=== PATIENT | male | born 1940 | race Asian ===

== ENCOUNTER 2017-01-08 01:07 | Inpatient (IN) | payer MEDICARE, BC ==
[~2017-01-08] VITALS: Ht 172.7 cm; Wt 73.0 kg
[~2017-01-08 01:07] MED LIST: GLYB5TAB7 PO; SITA100T PO
[2017-01-08] MEDS ORDERED: PANTOPRAZOLE SODIUM 40 MG VIAL IV ONE (01:45)
[2017-01-08] MEDS ORDERED: MORPHINE SULFATE 2 MG/1 ML DISP.SYRIN IV ONE (01:45)
[2017-01-08] MEDS ORDERED: IV NORMAL SALINE 1000 ML BAG IV ONE (01:45)
[2017-01-08] MEDS ORDERED: ONDANSETRON 4 MG/2 ML VIAL IV ONE (01:45)
[2017-01-08 01:49] LABS: BASOPHILS % (AUTO) 0.1 % (0.0-2.0); EOSINOPHILS # (AUTO) 0.1 K/uL (0.0-0.7); EOSINOPHILS % (AUTO) 0.5 % (0.0-7.0); HEMATOCRIT 46.8 % (40-50); HEMOGLOBIN 15.7 G/DL (14.0-18.0); LYMPHOCYTES # (AUTO) 1.6 K/UL (0.8-4.8); LYMPHOCYTES % (AUTO) 12.7 % (20.5-51.5); MEAN CORPUSCULAR HEMOGLOBIN 29.8 UUG (27.0-31.0); MEAN CORPUSCULAR HGB CONC 34 g/dL (32.0-37.0); MEAN CORPUSCULAR VOLUME 89.1 FL (82.0-92.0); MONOCYTES # (AUTO) 0.8 K/UL (0.1-1.30); MONOCYTES % (AUTO) 5.9 % (0.0-11.0); NEUTROPHILS # (AUTO) 10.3 K/UL (1.8-8.9); NEUTROPHILS % (AUTO) 80.8 % (38.5-71.5); PLATELET COUNT (AUTO) 206 K/UL (150-450); RED BLOOD CELL COUNT(AUTO) 5.25 MIL/UL (4.7-6.1); WHITE BLOOD COUNT (AUTO) 12.8 K/UL (4.0-11.2)
[2017-01-08 01:59] LABS: CARBON DIOXIDE 33 mmol/L (21-32); CHLORIDE 99 mmol/L (98-107); GLUCOSE 224 mg/dL (74-106); POTASSIUM 3.5 mmol/L (3.5-5.1); UREA NITROGEN, BLOOD 21 mg/dL (7-18)
[2017-01-08] MEDS ORDERED: PANTOPRAZOLE SODIUM 40 MG VIAL ONE (02:00)
[2017-01-08] MEDS ORDERED: ONDANSETRON 4 MG/2 ML VIAL ONE (02:00)
--- NOTE | 2017-01-08 02:00 | NUR ---
patient is awake, alert, oriented x4. 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 No c/o nausea/vomiting at this time. Denies chest pain/respiratory distress at this time.
[2017-01-08] MEDS ORDERED: MORPHINE SULFATE 2 MG/1 ML DISP.SYRIN ONE (02:01)
[2017-01-08 02:05] LABS: ALANINE AMINOTRANSFERASE 27 U/L (16-63); ALKALINE PHOSPHATASE 60 U/L (50-136); ASPARTATE AMINOTRANSFERASE 23 U/L (15-37); BILIRUBIN,DIRECT 0.1 mg/dL (0.0-0.2); BILIRUBIN,TOTAL 0.6 mg/dL (0.2-1.0); LIPASE 159 U/L (73-393); TOTAL PROTEIN, SERUM 7.5 g/dL (6.4-8.2)
--- NOTE | 2017-01-08 02:20 | NUR ---
Patient taken to CT. patient awake, alert, oriented x4. Able to make needs known.
[2017-01-08] MEDS ORDERED: HYDROMORPHONE 1 MG/1 ML DISP.SYRIN IV ONE (03:00)
[2017-01-08] MEDS ORDERED: HYDROMORPHONE 2 MG/1 ML DISP.SYRIN ONE (03:14)
[2017-01-08 04:00] VITALS: BP 119/65
[2017-01-08] MEDS ORDERED: INSU100V7 SQ (04:13)
[2017-01-08] MEDS ORDERED: BIMA2.5D5 EACHEYE (04:13)
[2017-01-08] MEDS ORDERED: BRIN15DR OP (04:13)
[2017-01-08] MEDS ORDERED: HYDROMORPHONE 1 MG/1 ML DISP.SYRIN IV PRN (04:30)
[2017-01-08] MEDS ORDERED: MAGNESIUM HYDROXIDE 30 ML LIQUID UDC PO PRN (04:30)
[2017-01-08] MEDS ORDERED: ACETAMINOPHEN 325 MG TABLET PO PRN (04:30)
[2017-01-08] MEDS ORDERED: IV NS 1000 ML 1,000 ML IV PRN (04:30)
[2017-01-08] MEDS ORDERED: ONDANSETRON 4 MG/2 ML VIAL IV PRN (04:30)
[2017-01-08] MEDS ORDERED: CEFTRIAXONE 1 G in IV DEXTROSE 5% 50 ML IV SCH (04:30)
[2017-01-08] MEDS ORDERED: Z GUARD REMEDY PASTE 57 GM TUBE TOP PRN (04:30)
--- NOTE | 2017-01-08 04:51 | NUR ---
Pt. admitted to Telemetry , under care of Dr. Calvillo. Dx: Abdominal Pain Belongs List completed
[2017-01-08 04:52] LABS: *BILIRUBIN,URIN NEGATIVE (NEGATIVE); *BLOOD, URINE NEGATIVE (NEGATIVE); *CLARITY,URINE CLOUDY (CLEAR); *COLOR,URINE YELLOW (YELLOW); *KETONES,URINE TRACE (NEGATIVE); *PROTEIN,URINE NEGATIVE (NEGATIVE); *UROBILINOGEN,URINE 0.2 E.U./dl (NORMAL); LEUKOCYTE ESTERASE ,URINE NEGATIVE (NEGATIVE); NITRITE, URINE NEGATIVE (NEGATIVE); PH,URINE 7.5 (5.0-8.0); UGLUCOSE TRACE (NEGATIVE)
--- NOTE | 2017-01-08 04:55 | NUR ---
Received pt from ER via wheelchair. Pt is alert, responsive, in no acute distress. Pt is admitted to tele under the care of Dr. Calvillo. Dx: Abdominal pain. Tele monitor shows sinus rhythm. VS stable. Belonging list done, admission process and care plan initiated. Pt is placed NPO. Orders entered by MD. Safety measures in place, call light within reach. Will continue to monitor.
[2017-01-08 05:00] LABS: BACTERIA,URINE NONE SEEN /HPF (NONE SEEN); RBC,URINE 0-3 /HPF (0-3); SQUAMOUS EPITHELIAL CELL,UR FEW /HPF (NONE SEEN); URINE AMORPHOUS PHOSPHATES MANY /HPF; WBC,URINE NONE SEEN /HPF (0-3)
--- NOTE | 2017-01-08 05:15 | NUR ---
Patient reported history of Diabetes, taking 15 units of Lantus at home. According to pt, blood sugar go as high as 150's and go as low as below 70's. Will endorse to day shift RN and notify MD.
[2017-01-08 05:46] LABS: BASOPHILS % (AUTO) 0.2 % (0.0-2.0); EOSINOPHILS % (AUTO) 0.1 % (0.0-7.0); HEMATOCRIT 41.2 % (40-50); LYMPHOCYTES % (AUTO) 9.4 % (20.5-51.5); MEAN CORPUSCULAR HEMOGLOBIN 29.8 UUG (27.0-31.0); MEAN CORPUSCULAR HGB CONC 34 g/dL (32.0-37.0); MEAN CORPUSCULAR VOLUME 87.5 FL (82.0-92.0); MONOCYTES # (AUTO) 0.4 K/UL (0.1-1.30); MONOCYTES % (AUTO) 3.7 % (0.0-11.0); NEUTROPHILS # (AUTO) 9.3 K/UL (1.8-8.9); NEUTROPHILS % (AUTO) 86.6 % (38.5-71.5); PLATELET COUNT (AUTO) 187 K/UL (150-450); RED BLOOD CELL COUNT(AUTO) 4.71 MIL/UL (4.7-6.1); WHITE BLOOD COUNT (AUTO) 10.7 K/UL (4.0-11.2)
[2017-01-08] MEDS ORDERED: CEFTRIAXONE 1 G VIAL ONE (05:58)
[2017-01-08] MEDS ORDERED: METRONIDAZOLE 500 MG/NS 100ML 100 ML IV ONE (05:58)
[2017-01-08] MEDS ORDERED: METRONIDAZOLE 500 MG/NS 100ML 500 MG in PREMIXED 1 EACH IV SCH (06:00)
[2017-01-08 06:04] LABS: ALANINE AMINOTRANSFERASE 28 U/L (16-63); ALKALINE PHOSPHATASE 55 U/L (50-136); ASPARTATE AMINOTRANSFERASE 26 U/L (15-37); BILIRUBIN,TOTAL 0.4 mg/dL (0.2-1.0); CARBON DIOXIDE 29 mmol/L (21-32); CHLORIDE 103 mmol/L (98-107); GLUCOSE 151 mg/dL (74-106); LIPASE 126 U/L (73-393); TOTAL PROTEIN, SERUM 6.8 g/dL (6.4-8.2); UREA NITROGEN, BLOOD 18 mg/dL (7-18)
[2017-01-08] MEDS ORDERED: BLOOD SUGAR DIAGNOSTIC 1 EACH STRIP VI SCH (07:30)
[2017-01-08] MEDS ORDERED: HYDROMORPHONE 2 MG/1 ML DISP.SYRIN IV PRN (08:15)
--- NOTE | 2017-01-08 10:47 | NUR ---
[employer] school art teacher Note: Patient was seen by Dr Samuels, patient is discharge, tolerated clear liquids, given regular diet, tolerated eating sandwich. and drinking fluids. Patient to follow up with primary doctor Dr Presley Zuniga, in [facility]. Patient ate at home, cashews and macadamian nuts, patient believed nuts caused severe abdominal pain, patient will eliminates nuts. No compalints of any nausea.
[2017-01-08 11:11] VITALS: BP 105/64
[2017-01-08] MEDS ORDERED: BRINZOLAMIDE 1% OPHT DROP 10 ML BOTTLE OP SCH (17:00)
[2017-01-09] MEDS ORDERED: BIMATOPROST 0.01% OPHT DROP 2.5 ML BOTTLE EACHEYE SCH (09:00)
== END 2017-01-08 11:30 | disposition home or self-care (01) | DRG 373 ==
LOC: ER 01:10 → TELE 04:36
PROVIDERS: ADMIT Internal Medicine; ATTEND Internal Medicine
DX: A04.9 Bacterial intestinal infection, unspecified (principal); E11.9 Type 2 diabetes mellitus without complications; K80.20 Calculus of gallbladder without cholecystitis without obstruction; I10 Essential (primary) hypertension; Z79.4 Long term (current) use of insulin; H40.9 Unspecified glaucoma; Z79.84 Long term (current) use of oral hypoglycemic drugs
CPT/HCPCS: 36415; 70030-TC; 71010; 83690; 85025; 85730; 93005; A4663; C9113; J0696; J1170; J2270; J2405; J3490; J7030; J7060

== ENCOUNTER 2017-01-09 15:39 | Inpatient (IN) | payer MEDICARE, BC ==
[~2017-01-09] VITALS: Ht 170.2 cm; Wt 68.0 kg
[~2017-01-09 15:39] MED LIST changes: +BIMA2.5D5 EACHEYE; +BRIN15DR OP; +INSU100V7 SQ; -SITA100T PO
[2017-01-09] MEDS ORDERED: ONDANSETRON 4 MG/2 ML VIAL IV ONE (16:30)
[2017-01-09] MEDS ORDERED: HYDROMORPHONE 1 MG/1 ML DISP.SYRIN IV ONE (16:30)
[2017-01-09] MEDS ORDERED: IV NORMAL SALINE 1000 ML BAG IV ONE (16:30)
--- NOTE | 2017-01-09 16:30 | NUR ---
PT IS IN ROOM #2B. DR TADEO EVALUATED THE PT.
[2017-01-09 16:57] LABS: BASOPHILS # (AUTO) 0.3 K/uL (0.0-8.0); BASOPHILS % (AUTO) 1.7 % (0.0-2.0); EOSINOPHILS % (AUTO) 0.1 % (0.0-7.0); HEMATOCRIT 43.7 % (40-50); HEMOGLOBIN 14.6 G/DL (14.0-18.0); LYMPHOCYTES % (AUTO) 6.2 % (20.5-51.5); MEAN CORPUSCULAR HEMOGLOBIN 29.5 UUG (27.0-31.0); MEAN CORPUSCULAR HGB CONC 33 g/dL (32.0-37.0); MEAN CORPUSCULAR VOLUME 88.4 FL (82.0-92.0); MONOCYTES # (AUTO) 1.3 K/UL (0.1-1.30); MONOCYTES % (AUTO) 8.4 % (0.0-11.0); NEUTROPHILS # (AUTO) 13.2 K/UL (1.8-8.9); NEUTROPHILS % (AUTO) 83.6 % (38.5-71.5); PLATELET COUNT (AUTO) 167 K/UL (150-450); RED BLOOD CELL COUNT(AUTO) 4.94 MIL/UL (4.7-6.1); WHITE BLOOD COUNT (AUTO) 15.8 K/UL (4.0-11.2)
[2017-01-09] MEDS ORDERED: ONDANSETRON 4 MG/2 ML VIAL ONE (17:08)
[2017-01-09] MEDS ORDERED: HYDROMORPHONE 2 MG/1 ML DISP.SYRIN ONE (17:08)
[2017-01-09 17:15] LABS: CARBON DIOXIDE 27 mmol/L (21-32); CHLORIDE 99 mmol/L (98-107); POTASSIUM 3.4 mmol/L (3.5-5.1)
[2017-01-09 17:16] LABS: GLUCOSE 203 mg/dL (74-106); UREA NITROGEN, BLOOD 19 mg/dL (7-18)
[2017-01-09 17:19] LABS: BAND % (MANUAL) 8 % (0-10); LYMPHOCYTES % (MANUAL) 5 % (20-40); MONOCYTES % (MANUAL) 11 % (2-10); NEUTROPHILS % (MANUAL) 76 % (42-75)
[2017-01-09 17:20] LABS: ALANINE AMINOTRANSFERASE 24 U/L (16-63); ALKALINE PHOSPHATASE 59 U/L (50-136); ASPARTATE AMINOTRANSFERASE 20 U/L (15-37); BILIRUBIN,DIRECT 0.2 mg/dL (0.0-0.2); BILIRUBIN,TOTAL 0.8 mg/dL (0.2-1.0); LIPASE 111 U/L (73-393); TOTAL PROTEIN, SERUM 7.1 g/dL (6.4-8.2)
[2017-01-09] MEDS ORDERED: CEFTRIAXONE 2 G in IV DEXTROSE 5% 100 ML IV ONE (17:45)
[2017-01-09] MEDS ORDERED: ACETAMINOPHEN 325 MG TABLET PO PRN (18:00)
[2017-01-09] MEDS ORDERED: Z GUARD REMEDY PASTE 57 GM TUBE TOP PRN (18:00)
[2017-01-09] MEDS ORDERED: ONDANSETRON 4 MG/2 ML VIAL IV PRN (18:00)
[2017-01-09] MEDS ORDERED: MAGNESIUM HYDROXIDE 30 ML LIQUID UDC PO PRN (18:00)
[2017-01-09] MEDS ORDERED: POTASSIUM CHLORIDE 50 ML IV SCH (18:00)
[2017-01-09] MEDS ORDERED: HYDROMORPHONE 1 MG/1 ML DISP.SYRIN IV PRN (18:00)
[2017-01-09] MEDS ORDERED: CEFTRIAXONE 1 G VIAL ONE (18:11)
--- NOTE | 2017-01-09 18:29 | NUR ---
PT WAS TRANSFERED TO TELEMETRY ROOM #220. REPORT WAS GIVEN TO RUBBER COMPOUNDER.
--- NOTE | 2017-01-09 18:45 | NUR ---
RECEIVED CLIENT FROM THE ER VIA [employer] AT 1830. CLIENT IS A TELE PATIENT. V/S STABLE. IS ALERT, AWAKE AND ORIENTED TIMES 4. ADMIT WITH A DIAGNOSIS OF PNEUMONIA. HAS A 20 GAUGE PERIPHERAL IV LINE ON THE RIGHT HAND. COMMUNICATED IF SOMEONE IS ABLE TO BRING HIM TWO EYE DROP MEDICATIONS FROM HOME REQUESTED BY PHARMACIST, CLIENT STATED YES. NPO AT THE TIME
[2017-01-09 20:00] VITALS: BP 130/71
[2017-01-09] MEDS ORDERED: POTASSIUM CHLORIDE 20 MEQ TAB.PRT.SR PO ONE (20:00)
[2017-01-09] MEDS: LEVOFLOXACIN 750MG/D5W 750 MG in PREMIXED 1 EACH IV SCH (20:44)
[2017-01-09 21:00] VITALS: BP 130/71
[2017-01-09] MEDS ORDERED: INSULIN GLARGINE,HUM 300 UNITS/3 ML CARTRIDGE SQ SCH (21:00)
[2017-01-09] MEDS: INSULIN DETEMIR 300 UNIT/3 ML CARTRIDGE SQ SCH (21:05)
[2017-01-10] VITALS: BP 127/75
[2017-01-10 04:00] VITALS: BP 111/68
[2017-01-10 05:00] VITALS: BP 111/68
[2017-01-10] MEDS: IV NS 1000 ML 1,000 ML IV PRN (05:45)
--- NOTE | 2017-01-10 06:33 | NUR ---
END OF SHIFT SUMMERY: pt is A&O X 4. On room air, sating well. VSS. connected to the food service associate,NSR. complained of mild abdominal pain, tylenol was given with relief. still on NS 0.9% @ 75 ml/hr. kept NPO for possible HIDA scan today. POC: Possible HIDA scan. No acute respiratory/cardiac distress noted. will continue to monitor and endorse patient to next shift nurse.
[2017-01-10 06:52] LABS: ALANINE AMINOTRANSFERASE 28 U/L (16-63); ALKALINE PHOSPHATASE 61 U/L (50-136); ASPARTATE AMINOTRANSFERASE 52 U/L (15-37); BILIRUBIN,TOTAL 0.6 mg/dL (0.2-1.0); CARBON DIOXIDE 23 mmol/L (21-32); CHLORIDE 101 mmol/L (98-107); CREATININE 0.9 mg/dL (0.6-1.3); GLUCOSE 112 mg/dL (74-106); MAGNESIUM 1.8 mg/dL (1.8-2.4); PHOSPHOROUS 2.1 mg/dL (2.5-4.9); POTASSIUM 2.9 mmol/L (3.5-5.1); TOTAL PROTEIN, SERUM 6.6 g/dL (6.4-8.2); UREA NITROGEN, BLOOD 13 mg/dL (7-18)
[2017-01-10 06:56] LABS: BASOPHILS % (AUTO) 0.1 % (0.0-2.0); HEMOGLOBIN 14.1 g/dL (12.5-16.3); LYMPHOCYTES # (AUTO) 0.5 K/uL (20.0-40.0); MONOCYTES # (AUTO) 1.1 K/uL (2.0-10.0)
[2017-01-10 07:07] LABS: LYMPHOCYTES % (AUTO) 4.4 % (20.5-51.5); MEAN CORPUSCULAR HEMOGLOBIN 30.4 uug (23.8-33.4); MEAN CORPUSCULAR HGB CONC 34 g/dL (32.5-36.3); MEAN CORPUSCULAR VOLUME 88.5 fL (73.0-96.2); MONOCYTES % (AUTO) 9.3 % (0.0-11.0); NEUTROPHILS % (AUTO) 86.2 % (38.5-71.5); RED BLOOD CELL COUNT(AUTO) 4.63 MIL/uL (4.06-5.63)
[2017-01-10 07:11] LABS: PLATELET COUNT (AUTO) 114 K/uL (152-348); WHITE BLOOD COUNT (AUTO) 11.6 K/uL (3.6-10.2)
--- NOTE | 2017-01-10 07:30 | NUR ---
AWAKE ALERT AND ORIENTED X3 C/O SLIGHT ABDOMINAL PAIN MORE ON THE RIGHT SIDE. KEPT NPO. AFEBILE
[2017-01-10] MEDS: glyBURIDE 5 MG TABLET PO SCH ×2 (08:06→17:17)
[2017-01-10] MEDS: PANTOPRAZOLE SODIUM 40 MG VIAL IV SCH (08:10)
[2017-01-10] MEDS: HYDROMORPHONE 4 MG/1 ML DISP.SYRIN IV PRN ×2 (09:05→13:40)
--- NOTE | 2017-01-10 09:10 | NUR ---
Client was made aware of a planned NM Hida GB Vasc Flow for later today.
--- NOTE | 2017-01-10 09:27 | NUR ---
Consent obtain by the client for NM NEVILLE GB Vas Flow.
--- NOTE | 2017-01-10 10:37 | NUR ---
SEEN BY ELECTRONIC PAGINATION SYSTEM OPERATOR HOSPITALIST NOTED LABS WITH ORDERS, AWAITING SURGICAL CONSULT, CONTINUE NPO STATUS
[2017-01-10 11:16] VITALS: BP 102/61
[2017-01-10] MEDS: POTASSIUM PHOSPHATE MM 5 MMOL in IV DEXTROSE 5% 100 ML IV SCH ×4 (13:40→22:55)
--- NOTE | 2017-01-10 13:45 | NUR ---
Potassium Phosphate hung late, client was in procedure for NM HIDA GB Vascular Flow
[2017-01-10] MEDS ORDERED: HYDROMORPHONE 1 MG/1 ML DISP.SYRIN IM PRN (15:00)
[2017-01-10 15:50] VITALS: BP 110/63
[2017-01-10] MEDS ORDERED: HYDROMORPHONE 4 MG/1 ML DISP.SYRIN IM PRN (16:15)
--- NOTE | 2017-01-10 16:20 | NUR ---
Second bag of Potassium Phosphate hung late due to previous procedure. Pharmacy aware.
[2017-01-10] MEDS: HYDROMORPHONE 4 MG/1 ML DISP.SYRIN IM PRN ×3 (18:03→22:25)
[2017-01-10] MEDS: LEVOFLOXACIN 750MG/D5W 750 MG in PREMIXED 1 EACH IV SCH (18:19)
--- NOTE | 2017-01-10 18:58 | NUR ---
Client in bed asleep. Client has been experiencing pain on the right abdominal side and radiating anterior and across abdomen. Dilaudid 1mg has been as given as requested, PRN, by the client. Client family brought in medications from home as well as two eye drops Bimatoprost and Brinzolamide, pharmacy aware.
--- NOTE | 2017-01-10 19:33 | NUR ---
BIMATOPROST EYE DROPS AND BRINZOLAMIDE EYE DROPS NOT GIVEN AT DESIGNATED TIMES BECAUSE MEDICATIONS WAS NOT AVAILABLE AT THE TIME. MEDICATIONS WERE TAKEN DOWN AND TURNED IN TO PHARMACY AROUND 1730 HRS.
[2017-01-10 20:13] VITALS: BP 145/73
[2017-01-10] MEDS: INSULIN DETEMIR 300 UNIT/3 ML CARTRIDGE SQ SCH (21:00)
--- NOTE | 2017-01-10 21:55 | NUR ---
Patient signed consent form for surgery tomorrow morning at 1100. Consent for laparoscopic cholecystectomy. Signed consent place in patient's chart.
[2017-01-10] MEDS ORDERED: HYDROMORPHONE 1 MG/1 ML DISP.SYRIN ONE (22:38)
[2017-01-11] VITALS (7 sets, daily range): BP systolic 96–131; BP diastolic 65–80
--- NOTE | 2017-01-11 | NUR ---
Patient placed on NPO status for surgery. Will continue to monitor.
[2017-01-11] MEDS ORDERED: HYDROMORPHONE 4 MG/1 ML DISP.SYRIN ONE (00:20)
--- NOTE | 2017-01-11 00:48 | NUR ---
2 bags 4 bags of 4 Potassium Phosphate Addendum: 01/11/17 at 0050 by JOSE ALFREDO FELDMAN RN DISREGARD NOTES ABOVE. ERROR.
--- NOTE | 2017-01-11 00:50 | NUR ---
2 bags of Potassium Phosphate (3rd and 4th bag) administered, completed dose. Patient tolerated well.
[2017-01-11] MEDS: HYDROMORPHONE 4 MG/1 ML DISP.SYRIN IM PRN ×4 (03:13→16:33)
--- NOTE | 2017-01-11 06:00 | NUR ---
Pt slept intermittently, in no acute distress. Pain management as ordered for pain on right abdomen. IVF infusing, no infiltration noted. Patient is on tele, sinus rhythm with PVCs, bigeminy/trigeminy. Patient no c/o of SOB, chest pain, headache, nausea/vomiting. NPO status post midnight, consent signed, preop checklist done for surgery scheduled at 1100 today. Blood sugar checked per nursing assessment and due to pt's hx of diabetes and NPO status. BS level reading 180. Assisted patient with sponge bath, dressed with clean gown. Safety measures in place, will continue to monitor.
[2017-01-11] MEDS ORDERED: HYDROMORPHONE 2 MG/1 ML DISP.SYRIN ONE (06:03)
[2017-01-11 06:45] LABS: BASOPHILS % (AUTO) 0.1 % (0.0-2.0); EOSINOPHILS % (AUTO) 0.1 % (0.0-7.0); HEMATOCRIT 37.1 % (36.7-47.1); HEMOGLOBIN 12.7 g/dL (12.5-16.3); LYMPHOCYTES # (AUTO) 0.6 K/uL (20.0-40.0); LYMPHOCYTES % (AUTO) 6.4 % (20.5-51.5); MEAN CORPUSCULAR HEMOGLOBIN 30.6 uug (23.8-33.4); MEAN CORPUSCULAR HGB CONC 34 g/dL (32.5-36.3); MEAN CORPUSCULAR VOLUME 89.3 fL (73.0-96.2); MONOCYTES # (AUTO) 0.9 K/uL (2.0-10.0); MONOCYTES % (AUTO) 9.5 % (0.0-11.0); NEUTROPHILS % (AUTO) 83.9 % (38.5-71.5); PLATELET COUNT (AUTO) 86 K/uL (152-348); RED BLOOD CELL COUNT(AUTO) 4.15 MIL/uL (4.06-5.63); WHITE BLOOD COUNT (AUTO) 9.6 K/uL (3.6-10.2)
[2017-01-11 07:46] LABS: ALANINE AMINOTRANSFERASE 33 U/L (16-63); ALKALINE PHOSPHATASE 66 U/L (50-136); ASPARTATE AMINOTRANSFERASE 35 U/L (15-37); BILIRUBIN,DIRECT 0.2 mg/dL (0.0-0.2); BILIRUBIN,TOTAL 0.6 mg/dL (0.2-1.0); CARBON DIOXIDE 25 mmol/L (21-32); CHLORIDE 99 mmol/L (98-107); CREATININE 1.2 mg/dL (0.6-1.3); GLUCOSE 191 mg/dL (74-106); POTASSIUM 3.4 mmol/L (3.5-5.1); TOTAL PROTEIN, SERUM 6.2 g/dL (6.4-8.2); UREA NITROGEN, BLOOD 29 mg/dL (7-18)
--- NOTE | 2017-01-11 08:28 | NUR ---
Notified of Platelet count: 01/09 platelets 167, 01/10 plt was 114, 01/11 plt decreased to 86, surgeon Dr More was notified, left no orders. Patient to have Lap Cholecystectomy
[2017-01-11] MEDS: glyBURIDE 5 MG TABLET PO SCH ×2 (08:34→18:29)
[2017-01-11] MEDS: PANTOPRAZOLE SODIUM 40 MG VIAL IV SCH (08:46)
[2017-01-11] MEDS ORDERED: BUPIVACAINE 0.25% 30 ML VIAL ONE (09:56)
--- NOTE | 2017-01-11 10:10 | NUR ---
Chris OSUNA was notified of the platelet down to 86, was 167 two days ago, and 114, yesterday.
[2017-01-11] MEDS ORDERED: FENTANYL CITRATE 250 MCG/5 ML AMPUL ONE (11:17)
[2017-01-11] MEDS ORDERED: MIDAZOLAM HCL 2 MG/2 ML VIAL ONE (11:17)
[2017-01-11] MEDS ORDERED: ROCURONIUM BROMIDE 50 MG/5 ML VIAL ONE (11:18)
[2017-01-11] MEDS ORDERED: SUCCINYLCHOLINE CHLORIDE 200 MG/10 ML VIAL ONE (11:18)
[2017-01-11 13:15] LABS: BASOPHILS % (AUTO) 0.1 % (0.0-2.0); EOSINOPHILS % (AUTO) 0.2 % (0.0-7.0); HEMATOCRIT 37.2 % (40-50); HEMOGLOBIN 12.4 G/DL (14.0-18.0); LYMPHOCYTES # (AUTO) 0.4 K/UL (0.8-4.8); LYMPHOCYTES % (AUTO) 5.7 % (20.5-51.5); MEAN CORPUSCULAR HEMOGLOBIN 29.4 UUG (27.0-31.0); MEAN CORPUSCULAR HGB CONC 33 g/dL (32.0-37.0); MONOCYTES # (AUTO) 0.6 K/UL (0.1-1.30); MONOCYTES % (AUTO) 8.7 % (0.0-11.0); NEUTROPHILS # (AUTO) 6.5 K/UL (1.8-8.9); NEUTROPHILS % (AUTO) 85.3 % (38.5-71.5); PLATELET COUNT (AUTO) 104 K/UL (150-450); RED BLOOD CELL COUNT(AUTO) 4.22 MIL/UL (4.7-6.1); WHITE BLOOD COUNT (AUTO) 7.5 K/UL (4.0-11.2)
--- NOTE | 2017-01-11 13:30 | NUR ---
Received patient from PACU, vital signs retaken, BP 121/70, pulse ox on 2 liters oxygen 93%, heart rate 88. pain level 4/10. no request for pain medications at present time. Dentures is on, due to void. 3 puncture sites with bandage and baylee villalobos right abdomen. started on clear liquids, no complaints of any nausea.
[2017-01-11 14:00] LABS: BAND % (MANUAL) 9 % (0-10); LYMPHOCYTES % (MANUAL) 7 % (20-40); METAMYELOCYTES % 1 % (0-1); MONOCYTES % (MANUAL) 8 % (2-10); NEUTROPHILS % (MANUAL) 75 % (42-75)
[2017-01-11] MEDS: IV NS 1000 ML 1,000 ML IV PRN (15:18)
[2017-01-11] MEDS: POTASSIUM CHLORIDE 10 MEQ in IV DEXTROSE 5% 100 ML IV SCH ×2 (15:22→16:21)
[2017-01-11] MEDS ORDERED: PROPOFOL 200 MG/20 ML BOTTLE IV ONE (17:34)
[2017-01-11] MEDS ORDERED: IV NORMAL SALINE 1000 ML BAG IV ONE (17:34)
[2017-01-11] MEDS ORDERED: ONDANSETRON 4 MG/2 ML VIAL IV ONE (17:34)
[2017-01-11] MEDS ORDERED: SEVOFLURANE 250 ML BOTTLE IH ONE (17:34)
[2017-01-11] MEDS ORDERED: LIDOCAINE-MPF 2% 5 ML VIAL MC ONE (17:34)
[2017-01-11] MEDS ORDERED: NEOSTIGMINE METHYLSULFATE 10 MG/10 ML VIAL IV ONE (17:34)
[2017-01-11] MEDS ORDERED: CEFAZOLIN 1 G VIAL MC ONE (17:34)
[2017-01-11] MEDS ORDERED: GLYCOPYRROLATE 0.2 MG/ML VIAL MC ONE (17:34)
[2017-01-11] MEDS: LEVOFLOXACIN 750MG/D5W 750 MG in PREMIXED 1 EACH IV SCH (18:53)
[2017-01-11] MEDS: INSULIN DETEMIR 300 UNIT/3 ML CARTRIDGE SQ SCH (20:43)
[2017-01-12] MEDS: HYDROMORPHONE 4 MG/1 ML DISP.SYRIN IM PRN ×2 (00:26→10:27)
--- NOTE | 2017-01-12 06:00 | NUR ---
Patient slept well, in no acute distress. Pt is s/p laparoscopic cholecystectomy. Three incision site dressings intact, no drainage/swelling/redness. AZAM drain intact/draining serous liquid. Pain management as ordered. Instructions given to patient to use incentive spirometer at bedside. IVF running, no infiltration noted. Patient ambulates to the bathroom, voiding. VS stable, pt remains afebrile. Safety measures in place. Will continue to monitor.
[2017-01-12 06:16] VITALS: BP 107/69
[2017-01-12 07:04] LABS: BASOPHILS % (AUTO) 0.1 % (0.0-2.0); EOSINOPHILS % (AUTO) 0.1 % (0.0-7.0); HEMOGLOBIN 12.9 g/dL (12.5-16.3); LYMPHOCYTES # (AUTO) 0.8 K/uL (20.0-40.0); LYMPHOCYTES % (AUTO) 8.5 % (20.5-51.5); MEAN CORPUSCULAR HGB CONC 35 g/dL (32.5-36.3); MEAN CORPUSCULAR VOLUME 88.8 fL (73.0-96.2); MONOCYTES # (AUTO) 0.8 K/uL (2.0-10.0); MONOCYTES % (AUTO) 9.4 % (0.0-11.0); NEUTROPHILS # (AUTO) 7.2 K/uL (1.8-8.9); NEUTROPHILS % (AUTO) 81.9 % (38.5-71.5); PLATELET COUNT (AUTO) 99 K/uL (152-348); RED BLOOD CELL COUNT(AUTO) 4.17 MIL/uL (4.06-5.63); WHITE BLOOD COUNT (AUTO) 8.8 K/uL (3.6-10.2)
[2017-01-12] MEDS: IV NS 1000 ML 1,000 ML IV PRN (07:07)
[2017-01-12 07:11] LABS: CARBON DIOXIDE 27 mmol/L (21-32); CHLORIDE 99 mmol/L (98-107); GLUCOSE 74 mg/dL (74-106); MAGNESIUM 2.2 mg/dL (1.8-2.4); POTASSIUM 3.2 mmol/L (3.5-5.1); UREA NITROGEN, BLOOD 20 mg/dL (7-18)
--- NOTE | 2017-01-12 08:00 | NUR ---
AWAKE ALERT COOPERATE WELL NO N/V OR PAIN ABD INCISION CLEAN AND AZAM INPLACE SMALL AMT OF PK DRAINAGE RESTING WELL WITH CALL OSCAR IN REACH
[2017-01-12] MEDS: PANTOPRAZOLE SODIUM 40 MG VIAL IV SCH (08:45)
[2017-01-12] MEDS: glyBURIDE 5 MG TABLET PO SCH ×2 (08:45→17:00)
[2017-01-12 09:26] LABS: BAND % (MANUAL) 12 % (0-10); LYMPHOCYTES % (MANUAL) 12 % (20-40); METAMYELOCYTES % 1 % (0-1); MONOCYTES % (MANUAL) 9 % (2-10); NEUTROPHILS % (MANUAL) 66 % (42-75)
--- NOTE | 2017-01-12 10:00 | NUR ---
DR HOLMAN SEEN PATIENT AND LAB RESULT THIS AM AND D/C AZAM ONLY 10ML OUT AND SMALL DSG COVER STATE OK TO D/C HOME IF OK WITH PMD
[2017-01-12 10:38] LABS: ALANINE AMINOTRANSFERASE 36 U/L (16-63); ALKALINE PHOSPHATASE 75 U/L (50-136); ASPARTATE AMINOTRANSFERASE 54 U/L (15-37); BILIRUBIN,TOTAL 0.8 mg/dL (0.2-1.0); CARBON DIOXIDE 25 mmol/L (21-32); CHLORIDE 100 mmol/L (98-107); CREATININE 1.1 mg/dL (0.6-1.3); GLUCOSE 73 mg/dL (74-106); POTASSIUM 3.3 mmol/L (3.5-5.1); TOTAL PROTEIN, SERUM 6.3 g/dL (6.4-8.2); UREA NITROGEN, BLOOD 20 mg/dL (7-18)
[2017-01-12 11:58] VITALS: BP 123/80
--- NOTE | 2017-01-12 12:00 | NUR ---
ASSIST OOB UP IN CHAIR EAT LUNCH CLEAR LIQ WELL NO N/V AND DIET WILL ADV MARYCARMEN
--- NOTE | 2017-01-12 14:00 | NUR ---
D/C INSTRUCTION REGARDING F/U WITH OWN PMD /SURGEON AND CONTINUE HOME MED ORDER EDUCATION PK GIVE ,VERBALIZES UNDERSTAND
[2017-01-12] MEDS ORDERED: POTASSIUM CHLORIDE 20 MEQ TAB.PRT.SR PO ONE (15:00)
[2017-01-12 15:55] VITALS: BP 126/74
--- NOTE | 2017-01-12 16:30 | NUR ---
REFUSED PHAMACY TO EXPLAINED PRECRIPTION STATE HE KNOW ANTIBIOTIC AND PAIN MEDICATION AND DR CERDA GIVEN TO HIM AND REFUSED VACCINE WILL F/U WITH OWN PMD
--- NOTE | 2017-01-12 17:15 | NUR ---
D/C HOME WITH HIS BELONGING CONDITION STABLE EAT DINNER SMALL AMT STATE WILL EAT AT HOME
[2017-01-13] MEDS ORDERED: PANTOPRAZOLE SODIUM 40 MG TABLET.DR PO SCH (07:00)
== END 2017-01-12 17:35 | disposition home or self-care (01) | DRG 853 ==
LOC: ER 15:39 → TELE 18:06 → MED 01-11 09:00
PROVIDERS: ADMIT Internal Medicine; ATTEND Internal Medicine
PROC: 0FT44ZZ Resection of Gallbladder, Percutaneous Endoscopic Approach (ICD-10-PCS; principal; 2017-01-11 11:00)
DX: A41.9 Sepsis, unspecified organism (principal); N17.0 Acute kidney failure with tubular necrosis; J18.9 Pneumonia, unspecified organism; K80.00 Calculus of gallbladder with acute cholecystitis without obstruction; E87.1 Hypo-osmolality and hyponatremia; E11.9 Type 2 diabetes mellitus without complications; E83.39 Other disorders of phosphorus metabolism; E87.6 Hypokalemia; I11.9 Hypertensive heart disease without heart failure; Z79.84 Long term (current) use of oral hypoglycemic drugs; K59.00 Constipation, unspecified; N20.0 Calculus of kidney; H40.9 Unspecified glaucoma
CPT/HCPCS: 36415; 70030-TC; 71010; 78445; 83605; 83690; 83735; 84100; 85025; 85730; 86850; 86900; 86901; 87040; 87070; 87075; 93005; A4663; A9537; C9113; J0330; J0690; J0696; J1170; J1815; J1956; J2250; J2405; J2710; J3010; J3480; J3490; J7030; J7050; J7060

== ENCOUNTER 2017-02-27 09:43 | Inpatient (IN) | payer MEDICARE, BC ==
[~2017-02-27] VITALS: Ht 170.2 cm; Wt 69.9 kg
[2017-02-27] MEDS ORDERED: METFORMIN HCL ER 500 MG TABLET PO (10:09)
[2017-02-27 10:45] LABS: BASOPHILS % (AUTO) 0.1 % (0.0-2.0); EOSINOPHILS % (AUTO) 0.1 % (0.0-7.0); HEMOGLOBIN 14.7 g/dL (12.5-16.3); LYMPHOCYTES # (AUTO) 0.6 K/uL (20.0-40.0); MEAN CORPUSCULAR HEMOGLOBIN 30.5 uug (23.8-33.4); MEAN CORPUSCULAR HGB CONC 34 g/dL (32.5-36.3); MEAN CORPUSCULAR VOLUME 89.5 fL (73.0-96.2); MONOCYTES # (AUTO) 0.9 K/uL (2.0-10.0); MONOCYTES % (AUTO) 7.8 % (0.0-11.0); NEUTROPHILS # (AUTO) 10.4 K/uL (1.8-8.9); PLATELET COUNT (AUTO) 229 K/uL (152-348)
[2017-02-27] MEDS ORDERED: ONDANSETRON 4 MG/2 ML VIAL IV ONE (10:45)
[2017-02-27] MEDS ORDERED: IV NORMAL SALINE 1000 ML BAG IV ONE (10:45)
[2017-02-27] MEDS ORDERED: MORPHINE SULFATE 2 MG/1 ML DISP.SYRIN IV ONE (10:45)
[2017-02-27 11:05] LABS: CARBON DIOXIDE 27 mmol/L (21-32); CHLORIDE 98 mmol/L (98-107); CREATININE 0.8 mg/dL (0.6-1.3); GLUCOSE 134 mg/dL (74-106); POTASSIUM 4.5 mmol/L (3.5-5.1); UREA NITROGEN, BLOOD 16 mg/dL (7-18)
[2017-02-27 11:10] LABS: ALANINE AMINOTRANSFERASE 610 U/L (16-63); ALKALINE PHOSPHATASE 965 U/L (50-136); ASPARTATE AMINOTRANSFERASE 537 U/L (15-37); BILIRUBIN,DIRECT 3.3 mg/dL (0.0-0.2); BILIRUBIN,TOTAL 4.7 mg/dL (0.2-1.0); TOTAL PROTEIN, SERUM 7.9 g/dL (6.4-8.2)
[2017-02-27] MEDS ORDERED: ONDANSETRON 4 MG/2 ML VIAL ONE (11:10)
[2017-02-27] MEDS ORDERED: MORPHINE SULFATE 4 MG/1 ML DISP.SYRIN ONE (11:10)
[2017-02-27 11:18] LABS: LIPASE 3568 U/L (73-393)
[2017-02-27] MEDS ORDERED: HYDROMORPHONE 1 MG/1 ML DISP.SYRIN IV ONE (11:45)
[2017-02-27] MEDS ORDERED: HYDROMORPHONE 1 MG/1 ML DISP.SYRIN ONE (12:06)
[2017-02-27 14:26] VITALS: BP 110/66
[2017-02-27] MEDS ORDERED: ACETAMINOPHEN 650 MG SUPP.RECT RC PRN (15:45)
[2017-02-27] MEDS ORDERED: MORPHINE SULFATE 2 MG/1 ML DISP.SYRIN IV PRN (15:45)
[2017-02-27] MEDS ORDERED: ONDANSETRON 4 MG/2 ML VIAL IV PRN (15:45)
[2017-02-27] MEDS: MORPHINE SULFATE 4 MG/1 ML DISP.SYRIN IV PRN (15:58)
[2017-02-27 16:00] VITALS: BP 121/79
[2017-02-27] MEDS ORDERED: BRINZOLAMIDE 1% OPHT DROP 10 ML BOTTLE OP SCH (17:00)
[2017-02-27] MEDS: IV D5/ 0.9% NACL 1,000 ML IV PRN (17:14)
[2017-02-27] MEDS: PIPERACILLIN/TAZOBACTAM/D5W 3.375 G in PREMIXED 1 EACH IV SCH ×2 (17:17→21:22)
[2017-02-27 20:01] VITALS: BP 108/58
[2017-02-27] MEDS: LATANOPROST OPHT DROP 2.5 ML BOTTLE OP SCH (21:00)
[2017-02-27] MEDS: FAMOTIDINE. 20 MG/2 ML VIAL IV SCH (21:21)
[2017-02-28 04:00] VITALS: BP 114/69
[2017-02-28] MEDS: MORPHINE SULFATE 4 MG/1 ML DISP.SYRIN IV PRN ×3 (05:43→14:46)
[2017-02-28] MEDS: PIPERACILLIN/TAZOBACTAM/D5W 3.375 G in PREMIXED 1 EACH IV SCH ×3 (06:05→22:18)
[2017-02-28 07:28] LABS: BASOPHILS % (AUTO) 0.3 % (0.0-2.0); EOSINOPHILS # (AUTO) 0.1 K/uL (0.0-0.7); EOSINOPHILS % (AUTO) 0.8 % (0.0-7.0); HEMATOCRIT 37.4 % (36.7-47.1); LYMPHOCYTES % (AUTO) 13.2 % (20.5-51.5); MEAN CORPUSCULAR HEMOGLOBIN 31.1 uug (23.8-33.4); MEAN CORPUSCULAR HGB CONC 35 g/dL (32.5-36.3); MEAN CORPUSCULAR VOLUME 89.3 fL (73.0-96.2); MONOCYTES # (AUTO) 0.5 K/uL (2.0-10.0); MONOCYTES % (AUTO) 7.2 % (0.0-11.0); NEUTROPHILS # (AUTO) 5.9 K/uL (1.8-8.9); NEUTROPHILS % (AUTO) 78.5 % (38.5-71.5); PLATELET COUNT (AUTO) 228 K/uL (152-348); RED BLOOD CELL COUNT(AUTO) 4.19 MIL/uL (4.06-5.63); WHITE BLOOD COUNT (AUTO) 7.5 K/uL (3.6-10.2)
[2017-02-28 07:49] LABS: ALANINE AMINOTRANSFERASE 368 U/L (16-63); ALKALINE PHOSPHATASE 818 U/L (50-136); ASPARTATE AMINOTRANSFERASE 164 U/L (15-37); BILIRUBIN,TOTAL 9.5 mg/dL (0.2-1.0); CARBON DIOXIDE 30 mmol/L (21-32); CHLORIDE 100 mmol/L (98-107); CREATININE 0.9 mg/dL (0.6-1.3); GLUCOSE 138 mg/dL (74-106); LIPASE 139 U/L (73-393); PHOSPHOROUS 3.1 mg/dL (2.5-4.9); POTASSIUM 3.4 mmol/L (3.5-5.1); TOTAL PROTEIN, SERUM 6.4 g/dL (6.4-8.2); UREA NITROGEN, BLOOD 14 mg/dL (7-18)
[2017-02-28] MEDS ORDERED: BIMATOPROST 0.01% OPHT DROP 2.5 ML BOTTLE EACHEYE SCH (09:00)
[2017-02-28] MEDS: FAMOTIDINE. 20 MG/2 ML VIAL IV SCH ×2 (10:10→22:03)
[2017-02-28] MEDS: DORZOLAMIDE 2% OPHT DROP 10 ML BOTTLE OP SCH ×2 (10:53→16:21)
[2017-02-28 11:30] VITALS: BP 117/70
[2017-02-28 15:10] VITALS: BP 154/78
[2017-02-28] MEDS: POTASSIUM CHLORIDE 50 ML IV SCH ×2 (17:56→19:00)
[2017-02-28 20:23] VITALS: BP 129/70
[2017-02-28] MEDS: LATANOPROST OPHT DROP 2.5 ML BOTTLE OP SCH (22:05)
[2017-03-01] MEDS: IV D5/ 0.9% NACL 1,000 ML IV PRN ×2 (00:21→11:31)
[2017-03-01 04:44] VITALS: BP 129/78
[2017-03-01] MEDS: PIPERACILLIN/TAZOBACTAM/D5W 3.375 G in PREMIXED 1 EACH IV SCH ×2 (05:55→13:29)
[2017-03-01 06:46] LABS: BASOPHILS % (AUTO) 0.3 % (0.0-2.0); EOSINOPHILS # (AUTO) 0.1 K/uL (0.0-0.7); EOSINOPHILS % (AUTO) 0.7 % (0.0-7.0); HEMATOCRIT 36.3 % (36.7-47.1); HEMOGLOBIN 12.5 g/dL (12.5-16.3); LYMPHOCYTES % (AUTO) 14.6 % (20.5-51.5); MEAN CORPUSCULAR HEMOGLOBIN 30.9 uug (23.8-33.4); MEAN CORPUSCULAR HGB CONC 35 g/dL (32.5-36.3); MEAN CORPUSCULAR VOLUME 89.2 fL (73.0-96.2); MONOCYTES # (AUTO) 0.6 K/uL (2.0-10.0); MONOCYTES % (AUTO) 8.6 % (0.0-11.0); NEUTROPHILS # (AUTO) 5.3 K/uL (1.8-8.9); NEUTROPHILS % (AUTO) 75.8 % (38.5-71.5); PLATELET COUNT (AUTO) 245 K/uL (152-348); RED BLOOD CELL COUNT(AUTO) 4.06 MIL/uL (4.06-5.63); WHITE BLOOD COUNT (AUTO) 6.9 K/uL (3.6-10.2)
[2017-03-01 07:06] LABS: ALANINE AMINOTRANSFERASE 246 U/L (16-63); ALKALINE PHOSPHATASE 705 U/L (50-136); ASPARTATE AMINOTRANSFERASE 62 U/L (15-37); BILIRUBIN,TOTAL 8.1 mg/dL (0.2-1.0); CARBON DIOXIDE 27 mmol/L (21-32); CHLORIDE 100 mmol/L (98-107); CREATININE 0.9 mg/dL (0.6-1.3); GLUCOSE 173 mg/dL (74-106); MAGNESIUM 2.1 mg/dL (1.8-2.4); PHOSPHOROUS 2.2 mg/dL (2.5-4.9); POTASSIUM 3.4 mmol/L (3.5-5.1); TOTAL PROTEIN, SERUM 6.2 g/dL (6.4-8.2); UREA NITROGEN, BLOOD 9 mg/dL (7-18)
[2017-03-01] MEDS: FAMOTIDINE. 20 MG/2 ML VIAL IV SCH (09:57)
[2017-03-01] MEDS: DORZOLAMIDE 2% OPHT DROP 10 ML BOTTLE OP SCH ×2 (09:58→17:00)
[2017-03-01 11:07] VITALS: BP 140/77
[2017-03-01 14:58] VITALS: BP 128/72
[2017-03-01] MEDS ORDERED: POTASSIUM PHOSPHATE MM 7.5 MMOL in IV DEXTROSE 5% 100 ML IV SCH (15:00)
[2017-03-01] MEDS ORDERED: NEUTRA PHOS PACKET PO ONE (15:30)
[2017-03-01] MEDS ORDERED: POTASSIUM CHLORIDE 20 MEQ TAB.PRT.SR PO ONE (15:30)
== END 2017-03-01 17:45 | disposition home or self-care (01) | DRG 441 ==
LOC: ER 10:01 → MED 12:42
PROVIDERS: ADMIT Internal Medicine; ATTEND Internal Medicine
DX: K75.9 Inflammatory liver disease, unspecified (principal); K85.10 Biliary acute pancreatitis without necrosis or infection; J84.10 Pulmonary fibrosis, unspecified; E83.39 Other disorders of phosphorus metabolism; E11.9 Type 2 diabetes mellitus without complications; D72.828 Other elevated white blood cell count; E87.6 Hypokalemia; H40.9 Unspecified glaucoma; K76.0 Fatty (change of) liver, not elsewhere classified; Z90.49 Acquired absence of other specified parts of digestive tract; Z79.4 Long term (current) use of insulin; I10 Essential (primary) hypertension
CPT/HCPCS: 36415; 71045; 83690; 83735; 84100; 85025; 93005; A4663; J1170; J2270; J2405; J2543; J3480; J3490; J7042; J7060

== ENCOUNTER 2021-04-30 20:23 | Emergency (ER) | payer MEDICARE, BC ==
[~2021-04-30] VITALS: Ht 172.7 cm; Wt 66.7 kg
[~2021-04-30 20:23] MED LIST changes: +METFORMIN HCL ER 500 MG TABLET PO
--- NOTE | 2021-04-30 21:12 | NUR ---
Dr. Salvador at bedside, MSE in progress.
[2021-04-30 21:53] LABS: HEMATOCRIT 34.8 % (36.7-47.1); MEAN CORPUSCULAR HEMOGLOBIN 29.1 uug (23.8-33.4); MEAN CORPUSCULAR VOLUME 86.4 fL (73.0-96.2); PLATELET COUNT (AUTO) 184 K/uL (152-348)
[2021-04-30 21:54] LABS: CREATININE 1.2 mg/dL (0.6-1.3); POTASSIUM 3.9 mmol/L (3.5-5.1)
[2021-04-30 21:57] LABS: *BILIRUBIN,URIN NEGATIVE (NEGATIVE); *BLOOD, URINE 2+ (NEGATIVE); *CLARITY,URINE CLEAR (CLEAR); *COLOR,URINE YELLOW (YELLOW); *KETONES,URINE 1+ (NEGATIVE); *UROBILINOGEN,URINE 0.2 E.U./dl (NORMAL); LEUKOCYTE ESTERASE ,URINE NEGATIVE (NEGATIVE); NITRITE, URINE NEGATIVE (NEGATIVE); UGLUCOSE 1+ (NEGATIVE)
[2021-04-30] MEDS ORDERED: HYDROMORPHONE 1 MG/1 ML DISP.SYRIN ONE (21:57)
[2021-04-30] MEDS ORDERED: ONDANSETRON 4 MG/2 ML VIAL ONE (21:57)
[2021-04-30] MEDS ORDERED: PANTOPRAZOLE SODIUM 40 MG VIAL ONE (21:58)
[2021-04-30 21:59] LABS: BILIRUBIN,DIRECT 0.2 mg/dL (0.0-0.2); BILIRUBIN,TOTAL 0.6 mg/dL (0.2-1.0); TOTAL PROTEIN, SERUM 6.3 g/dL (6.4-8.2)
[2021-04-30 22:05] LABS: BACTERIA,URINE NONE SEEN /HPF (NONE SEEN); RBC,URINE 20-50 /HPF (0-3); SQUAMOUS EPITHELIAL CELL,UR FEW /HPF (NONE SEEN); WBC,URINE 0-3 /HPF (0-3)
[2021-04-30] MEDS: IV NORMAL SALINE 1000 ML BAG IV ONE (22:09)
[2021-04-30] MEDS: PANTOPRAZOLE SODIUM 40 MG VIAL IV ONE (22:09)
[2021-04-30] MEDS: HYDROMORPHONE 1 MG/1 ML DISP.SYRIN IV ONE (22:22)
[2021-04-30] MEDS: ONDANSETRON 4 MG/2 ML VIAL IV ONE (22:23)
[2021-04-30] MEDS ORDERED: IV NORMAL SALINE 250 ML IV ONE (22:26)
[2021-04-30] MEDS ORDERED: SWABABLE VALVE TRANSFER SET EA MC ONE (22:26)
[2021-04-30] MEDS ORDERED: IOHEXOL 300MG/ML 100 ML INFUS..BTL ONE (22:26)
[2021-05-01] MEDS ORDERED: HYDR-4209 PO (00:26)
[2021-05-01] MEDS ORDERED: ONDA4TAB5 PO (00:26)
[2021-05-01] MEDS ORDERED: KETOROLAC TROMETHAMINE 30 MG INJ ONE (00:50)
[2021-05-01] MEDS: KETOROLAC TROMETHAMINE 30 MG INJ IVP ONE (00:50)
--- NOTE | 2021-05-01 00:50 | NUR ---
Patient discharged to home in stable condition. Written and verbal after care instructions given. Patient verbalizes understanding of instructions. Stressed follow up or return to ER for worsening s/s. pt ambulated with steady gait. denies pain. no SOB. no chest pain. afebrile. accompanied by .
[2021-05-01 02:03] VITALS: BP 124/74
== END 2021-05-01 00:55 | disposition home or self-care (01) ==
LOC: ER 20:25
DX: N13.2 Hydronephrosis with renal and ureteral calculous obstruction (principal); Z85.028 Personal history of other malignant neoplasm of stomach; I70.0 Atherosclerosis of aorta; D64.9 Anemia, unspecified; R31.29 Other microscopic hematuria; Z20.822 Contact with and (suspected) exposure to COVID-19; Z90.49 Acquired absence of other specified parts of digestive tract; I10 Essential (primary) hypertension
CPT/HCPCS: 71045; 74177; 80048; 80076; 81001; 82150; 83690; 85025; 85379; 85730; 87426; 93005; 96361; 96374; 96375; 99285; C9113; J1170; J1885; J2405; Q9967; A4663; J7030; J7050